=== PATIENT | female | born 1995 | race Caucasian/White ===

== ENCOUNTER → 2021-10-13 | Outpatient (CLI) | payer OTHER, SELFPAY ==
[2021-10-20 14:22] LABS: HPV Reflexed? NOT INDICATED
== END | disposition home or self-care (01) ==
LOC: LABSPEC 17:31
PROVIDERS: PCP Family Medicine; Visit Provider Nurse Practitioner Women's Health
DX: Z12.4 Encounter for screening for malignant neoplasm of cervix (principal)
CPT/HCPCS: 88175; G0145

== ENCOUNTER → 2022-06-30 | Outpatient (CLI) | payer OTHER, SELFPAY ==
[2022-06-30 15:34] LABS: Absolute Lymphocyte Count 1.95 X10^3/uL (0.83-4.51); Absolute Neutrophil Count 6.3 X10^3/uL (2.0-7.7); Basophil# 0.04 X10^3/uL; Basophil% 0.5 % (0-1); Eosinophil# 0.08 X10^3/uL; Eosinophils% 0.9 % (0-5); Hematocrit 38.5 % (37-47); Hemoglobin 13.2 g/dL (12.0-15.0); Lymphocyte # 1.95 X10^3/ul (0.83-4.51); Lymphocyte % 22.1 % (19-41); Mean Corp Hgb Conc 34.3 g/dL (32-36); Mean Corpuscular Volume 93.2 fL (81-99); Monocyte# 0.44 X10^3/uL; NRBC Flagged by Analyzer 0 % (0-5); Neutrophil # 6.29 X10^3/uL (2.7-7.7); Neutrophil % 71.2 % (47-70); Platelet Count 311 K/mm3 (150-450); RBC Distribution Width CV 11.6 % (11.6-14.6); RBC Distribution Width SD 39.2 fl (35.1-43.9); Red Blood Count 4.13 M/mm3 (4.2-5.4); White Blood Count 8.8 K/mm3 (4.4-11.0)
[2022-06-30 16:20] LABS: NATERA MAILED SPECIMEN
[2022-06-30 16:55] LABS: HIV - WCH Non-Reactive (Nonreactive); Hepatitis B Surface Antigen Non-Reactive (Nonreactive); Hepatitis C Antibody Non-Reactive (Nonreactive); Rubella IgG Reactive (Nonreactive); Syphilis Antibodies Non-reactive
[2022-07-02 21:07] LABS: Chlamydia By Nucleic Acid AMP Negative (Negative)
[2022-07-04 14:13] LABS: Gonococcus By Nucleic Acid AMP Negative (Negative)
== END | disposition home or self-care (01) ==
PROVIDERS: PCP Family Medicine; Referring Provider Obstetrics & Gynecology; Visit Provider Obstetrics & Gynecology
DX: Z34.90 Encounter for supervision of normal pregnancy, unspecified, unspecified trimester (principal); Z31.430 Encounter of female for testing for genetic disease carrier status for procreative management
CPT/HCPCS: 36415; 85025; 86703; 86762; 86780; 86803; 86850; 86900; 86901; 87086; 87340; 87491; 87591

== ENCOUNTER 2022-10-14 14:00 | Outpatient (CLI) | payer OTHER, SELFPAY ==
[2022-10-14] VITALS (13 sets, daily range): BP systolic 111–117; BP diastolic 63–69; PULSE 93–108; O2SAT 100
[2022-10-14] MEDS: Magnesium Sulfate 4gm/100mL 4 GM/100 ML IV.SOLN. IV (14:19)
[2022-10-14] MEDS: Betamethasone/Betamethasone 30 MG/5 ML Vial 12 MG IM (14:36)
[2022-10-14] MEDS: Magnesium Sulfate 4gm/100mL 2 GM/50 ML IV.SOLN. IV (14:37)
[2022-10-14] MEDS: Indomethacin 25 MG Capsule 50 MG PO (14:38)
[2022-10-14] MEDS: Lactated Ringers 1,000 ML 15 ML IV (14:41)
[2022-10-14 14:47] LABS: Absolute Lymphocyte Count 1.97 X10^3/uL (0.83-4.51); Absolute Neutrophil Count 9.9 X10^3/uL (2.0-7.7); Basophil# 0.05 X10^3/uL; Basophil% 0.4 % (0-1); Eosinophil# 0.07 X10^3/uL; Eosinophils% 0.6 % (0-5); Hematocrit 35.6 % (37-47); Hemoglobin 12.1 g/dL (12.0-15.0); Lymphocyte # 1.97 X10^3/ul (0.83-4.51); Lymphocyte % 15.7 % (19-41); Mean Corpuscular Hgb 33.9 pg (27.0-32.0); Mean Corpuscular Volume 99.7 fL (81-99); Mean Platelet Vol. 9.8 fl (6.2-12.0); Monocyte# 0.51 X10^3/uL; Monocyte% 4.1 % (0-10); NRBC Flagged by Analyzer 0 % (0-5); Neutrophil # 9.86 X10^3/uL (2.7-7.7); Neutrophil % 78.6 % (47-70); Platelet Count 360 K/mm3 (150-450); RBC Distribution Width CV 12.9 % (11.6-14.6); RBC Distribution Width SD 46.8 fl (35.1-43.9); Red Blood Count 3.57 M/mm3 (4.2-5.4); White Blood Count 12.5 K/mm3 (4.4-11.0)
[2022-10-14] MEDS: Magnesium Sulfate 20 GM/500 ML BAG IV (14:52)
--- NOTE | 2022-10-14 15:18 | OB.TRI.HP_ITS ---
HPI - General HPI Narrative SANDRA VEGA, is a 27 y/o @ 23 weeks 1 days who presents to my office today with mucous discharge and pressure. On exam in the office sterile spec she was found to have cervix surrounding bulging membranes (about 4 cm dilated). The fetus is in the breech presentation on ultrasound. She was sent to L&D stat. She denies loss of fluid, vaginal bleeding, or decreased movement. Her has been overall uncomplicated. Dr. Dill was consulted and accepted transfer to [facility]. Maternal Data Information CHANI Calculator Estimated Delivery Date Method Current WG Current Estimate 02/09/23 LMP (Certain) 23w 1d Other Estimates 02/11/23 Ultrasound #1 22w 6d PFSH PFSH Medical History Irregular menses Home Medications vitamins no.163-iron bis-gly 20 mg-folate no.10 1 mg tablet (PNV Tabs 20-1) 1 tab PO DAILY 06/16/22 [History Last Taken 1 Day Ago ~10/13/22] Allergy/AdvReac Type Severity Reaction Status Date / Time aspirin Allergy Intermediate Hives Verified 10/14/22 12:58 diphenhydramine Allergy Intermediate Hives Verified 10/14/22 12:58 [From Benadryl] ibuprofen Allergy Intermediate Hives Verified 10/14/22 12:58 lactose AdvReac Mild Upset Verified 10/14/22 12:58 Stomach Surgical History H/O oral surgery Hx of wisdom tooth extraction Social History adopted: No household members: spouse current occupational status: employed current occupation: [employer] current occupational exposures/hazards: No pets and animals: No history of recent travel: No sexually active: Yes Smoking Status: Never smoker alcohol intake: never substance use type: does not use diet: gluten free and lactose free well-balanced diet: daily or most days caffeine: No eating out: 1-3 times/week during the past year weight has: remained stable what type of physical activity do you participate in: running and weight training frequency: 3-4 times per week duration: 15-30 minutes/day rehan/anabaptist: Yarsani seatbelt use: always do you feel safe at home: Yes 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 History 1 Elective abortions Hx Para 0 Spontaneous abortions Hx # Term Pregnancies Ectopic pregnancies Hx # Pregnancies Multiple births # of living children Visit Details Expected Delivery Route/Plan Labor Preferences- CB/BF classes: [] labor support person: [] labor intervention preferences: [] pain management options preferred: [] cut cord/dad catch: [] : [] PP control planned: [] discussed possible routes of delivery and associated risks: [] special requests: [] Plans Covid status: unvaccinated Flu vaccine: dismissed Tdap vaccine: [] Rhogam: [] LARC form signed: [] Problem list reviewed and updated with the most current plan of care details and appropriate orders placed. Relevant counseling for the gestational age provided. Continue routine care and follow up unless otherwise noted in visit notes/problem list details OB Flowsheet Initial Weight: Not Recorded Date -?-?-?-?-?-?-?-?-?-?-?-?- EGA Weight BP Urine Prot -?-?-?-?-?-?-?-?-?-?-?-?- Glucose FHR FuHt Pres Dilation -?-?-?-?-?-?-?-?-?-?-?-?- Effaced St Visit Note 06/30/22 -?-?-?-?-?-?-?-?-?-?-?-?- 8w 0d 117 lb 2 oz 118/89 -?-?-?-?-?-?-?-?-?-?-?-?- 160 -?-?-?-?-?-?-?-?-?-?-?-?- JV- single live IUP measuring 7 weeks 5 days and consistent with LMP. 07/28/22 -?-?-?-?-?-?-?-?-?-?-?-?- 12w 0d 117 lb 2 oz 121/82 Nega tive -?-?-?-?-?-?-?-?-?-?-?-?- Negative 170 -?-?-?-?-?-?-?-?-?-?-?-?- SM- no vb crampi ng struggling with acne. 08/25/22 -?-?-?-?-?-?-?-?-?-?-?-?- 16w 0d 120 lb 8 oz 101/69 Nega tive -?-?-?-?-?-?-?-?-?-?-?-?- Negative 160 -?-?-?-?-?-?-?-?-?-?-?-?- Sm- no vb crampi ng declined afp 09/21/22 -?-?-?-?-?-?-?-?-?-?-?-?- 19w 6d 123 lb 8 oz 122/85 Nega tive -?-?-?-?-?-?-?-?-?-?-?-?- Negative 150 -?-?-?-?-?-?-?-?-?-?-?-?- SM- no vb lof go od fm no regular ctx 10/14/22 -?-?-?-?-?-?-?-?-?-?-?-?- 23w 1d 126 lb 8 oz 119/78 Trac e -?-?-?-?-?-?-?-?-?-?-?-?- Negative 156 -?-?-?-?-?-?-?-?-?-?-?-?- LC- pt seen for increased discharge since this morning with pelvic pressure. speculum placed and noted amniotic sac bulging in vagina. Dr. Hernandez notified and [facility] called. will be transporting to for IV placement, steroids, tocolytics. will be transporting to [facility]. ROS Constitutional Constitutional: Reports systems reviewed and no addt'l complaints, except as doc umented Gastrointestinal Gastrointestinal: Denies bloating, constipation, cramping, diarrhea, nausea or vomiting Genitourinary Genitourinary: Reports other Details: Denies vaginal odor, vaginal bleeding, or vaginal discharge ; Denies difficulty urinating or flank pain Physical Exam HEENT normocephalic Resp normal respiratory effort and normal air movement no CVA tenderness Extremity normal to inspection General Extremity: edema bilateral (trace ) NST FHR Rate Baby A Baseline: 140 Variability:: Moderate Accelerations:: 10 x 10 Decelerations:: None NST Reactive:: Yes FHR Category:: Category I Assessment & Plan (1) Threatened labor: (2) Rh negative status during : COMMENT: rhogam at 28 weeks and PRN bleeding (3) Supervision of high risk , antepartum: COMMENT: PRR , CHANI 02/09/23, surprise Ramirez (4) : QUALIFIERS: Weeks of gestation: 23 weeks Qualified Code(s): Z3A.23 - 23 weeks gestation of COMMENT: anatomy nl, declined genetic, carrier testing neg. PLAN: Plan start IV fluids, 2 grams ancef, INdocin, Magnesium sulfate, celestone now transport is on her way now. there are now some contractions on the monitor, however patient wants to urinate. Charges/Coding Multi Select Codes Visit Charges Office Visit/Consults: 41701 OV L4 Est Urinary/Genital Urinary/Genital CPT Codes: 29785-42 non-stress test Interp
== END 2022-10-14 15:02 | disposition home or self-care (01) ==
LOC: WPOUT 14:13 → WP 14:14
PROVIDERS: PCP Family Medicine; Referring Provider Obstetrics & Gynecology; Visit Provider Obstetrics & Gynecology
DX: O47.02 False labor before 37 completed weeks of gestation, second trimester (principal); O26.892 Other specified pregnancy related conditions, second trimester; Z3A.23 23 weeks gestation of pregnancy
CPT/HCPCS: 96365; 96372; 36415; 59050; 85025; 86850; 86900; 86901; 99221; J7120; G0378; J0702

== ENCOUNTER → 2023-03-23 | Outpatient (CLI) | payer OTHER, SELFPAY | END | disposition home or self-care (01) | LOC: LABSPEC 16:59 | PROVIDERS: PCP Family Medicine; Referring Provider Registered Nurse; Visit Provider Registered Nurse | DX: N90.89 Other specified noninflammatory disorders of vulva and perineum (principal) | CPT/HCPCS: 87070; 87205 ==

== ENCOUNTER → 2023-09-24 | Outpatient (CLI) | payer OTHER, SELFPAY ==
[2023-09-28 00:07] LABS: Chlamydia By Nucleic Acid AMP Negative (Negative); Gonococcus By Nucleic Acid AMP Negative (Negative)
== END | disposition home or self-care (01) ==
LOC: LABSPEC 16:27
PROVIDERS: PCP Family Medicine; Referring Provider Registered Nurse; Visit Provider Registered Nurse
DX: Z34.90 Encounter for supervision of normal pregnancy, unspecified, unspecified trimester (principal)
CPT/HCPCS: 87086; 87491; 87591

== ENCOUNTER → 2023-09-29 | Outpatient (CLI) | payer OTHER, SELFPAY ==
[2023-09-29 14:26] LABS: Absolute Lymphocyte Count 2.62 X10^3/uL (0.83-4.51); Absolute Neutrophil Count 7.3 X10^3/uL (2.0-7.7); Basophil# 0.06 X10^3/uL; Basophil% 0.6 % (0-1); Eosinophil# 0.17 X10^3/uL; Eosinophils% 1.6 % (0-5); Hematocrit 38.3 % (37-47); Hemoglobin 13.1 g/dL (12.0-15.0); Lymphocyte # 2.62 X10^3/ul (0.83-4.51); Lymphocyte % 24.4 % (19-41); Mean Corp Hgb Conc 34.2 g/dL (32-36); Mean Corpuscular Hgb 31.6 pg (27.0-32.0); Mean Corpuscular Volume 92.3 fL (81-99); Mean Platelet Vol. 9.9 fl (6.2-12.0); Monocyte% 5.6 % (0-10); NRBC Flagged by Analyzer 0 % (0-5); Neutrophil # 7.25 X10^3/uL (2.7-7.7); Neutrophil % 67.5 % (47-70); Platelet Count 349 K/mm3 (150-450); RBC Distribution Width CV 11.7 % (11.6-14.6); RBC Distribution Width SD 39.4 fl (35.1-43.9); Red Blood Count 4.15 M/mm3 (4.2-5.4); White Blood Count 10.7 K/mm3 (4.4-11.0)
[2023-09-29 15:18] LABS: HIV - WCH Non-Reactive (Nonreactive); Hepatitis B Surface Antigen Non-Reactive (Nonreactive); Hepatitis C Antibody Non-Reactive (Nonreactive); Rubella IgG Reactive (Nonreactive); Syphilis Antibodies Non-reactive
== END | disposition home or self-care (01) ==
LOC: PAVLAB 14:02
PROVIDERS: PCP Family Medicine; Referring Provider Registered Nurse; Visit Provider Registered Nurse
DX: Z34.90 Encounter for supervision of normal pregnancy, unspecified, unspecified trimester (principal)
CPT/HCPCS: 36415; 85025; 86703; 86762; 86780; 86803; 86850; 86900; 86901; 87340

== ENCOUNTER → 2024-02-11 | Outpatient (CLI) | payer OTHER, SELFPAY ==
[2024-02-11 09:52] LABS: Absolute Lymphocyte Count 1.39 X10^3/uL (0.83-4.51); Absolute Neutrophil Count 7.3 X10^3/uL (2.0-7.7); Basophil# 0.05 X10^3/uL; Basophil% 0.5 % (0-1); Eosinophil# 0.11 X10^3/uL; Eosinophils% 1.2 % (0-5); Hematocrit 33.7 % (37-47); Hemoglobin 11.3 g/dL (12.0-15.0); Lymphocyte # 1.39 X10^3/ul (0.83-4.51); Mean Corp Hgb Conc 33.5 g/dL (32-36); Mean Corpuscular Hgb 33.7 pg (27.0-32.0); Mean Corpuscular Volume 100.6 fL (81-99); Mean Platelet Vol. 9.8 fl (6.2-12.0); Monocyte# 0.34 X10^3/uL; Monocyte% 3.7 % (0-10); NRBC Flagged by Analyzer 0 % (0-5); Neutrophil # 7.28 X10^3/uL (2.7-7.7); Neutrophil % 78.8 % (47-70); Platelet Count 300 K/mm3 (150-450); Red Blood Count 3.35 M/mm3 (4.2-5.4); White Blood Count 9.2 K/mm3 (4.4-11.0)
[2024-02-11 10:33] LABS: Glucose Challenge Gest 1H 50g 96 mg/dL (70-140)
[2024-02-11 10:46] LABS: HIV - WCH Non-Reactive (Nonreactive); Syphilis Antibodies Non-reactive
== END | disposition home or self-care (01) ==
LOC: LAB 09:21
PROVIDERS: PCP Family Medicine; Referring Provider Obstetrics & Gynecology; Visit Provider Obstetrics & Gynecology
DX: O09.92 Supervision of high risk pregnancy, unspecified, second trimester (principal); Z13.1 Encounter for screening for diabetes mellitus; Z3A.00 Weeks of gestation of pregnancy not specified
CPT/HCPCS: 36415; 82950; 85025; 86703; 86780; 86850; 86900; 86901

== ENCOUNTER → 2024-04-07 | Outpatient (CLI) | payer OTHER, SELFPAY | END | disposition home or self-care (01) | PROVIDERS: PCP Family Medicine; Referring Provider Obstetrics & Gynecology; Visit Provider Obstetrics & Gynecology | DX: O09.92 Supervision of high risk pregnancy, unspecified, second trimester (principal); Z3A.00 Weeks of gestation of pregnancy not specified | CPT/HCPCS: 87081 ==

== ENCOUNTER 2024-04-27 02:00 | Inpatient (IN) | payer OTHER, SELFPAY ==
[2024-04-27] VITALS (58 sets, daily range): BP systolic 100–123; BP diastolic 61–81; PULSE 45–131; RESP 16–18; TEMP 36.4–37.6; O2SAT 56–100; BMI 27.1
[2024-04-27] MEDS: 0.9% Saline Lock 10 ML Syringe IV ×2 (02:25→02:40)
--- NOTE | 2024-04-27 02:27 | HP.PCM.OB_ITS ---
HPI - General General Date of Admission: 04/27/24 HPI Narrative SANDRA VEGA, is a 29 F who presents IAL with regualr ctx no vb admits LOF and ROM 900 pm Maternal Data Information CHANI Calculator Estimated Delivery Date Method Current WG Current Estimate 05/04/24 LMP (Certain) 39w 0d PFSH PFSH Medical History Ectropion, cervix Irritation of vulva Vaginal discharge Diastasis of rectus abdominis Pre-conception counseling Vaginal discharge Rh negative status during Irregular menses Home Medications ?Medication ?Instructions ?Recorded ?Last Taken ?Type vitamin#30 30 mg iron-10 1 cap PO DAILY 01/07/24 Unknown History mg iron-folic acid 1 mg-omg3 capsule Allergy/AdvReac Type Severity Reaction Status Date / Time aspirin Allergy Intermediate Hives Verified 04/27/24 01:45 diphenhydramine (From Allergy Intermediate Hives Verified 04/27/24 01:45 Benadryl) ibuprofen Allergy Intermediate Hives Verified 04/27/24 01:45 Penicillins Allergy Mild Rash Verified 04/27/24 01:45 lactose AdvReac Mild Upset Verified 04/27/24 01:45 Stomach Family History no significant family his Surgical History Hx of wisdom tooth extraction Social History adopted: No household members: spouse current occupational status: employed current occupation: [employer] current occupational exposures/hazards: No pets and animals: No history of recent travel: No sexually active: Yes Smoking Status: Never smoker alcohol intake: never substance use type: does not use diet: gluten free and lactose free well-balanced diet: daily or most days caffeine: No eating out: rarely or never during the past year weight has: remained stable what type of physical activity do you participate in: walking and weight training frequency: 3-4 times per week duration: 15-30 minutes/day rehan/orthodoxy: Hoahaoism seatbelt use: always do you feel safe at home: Yes 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 Date Name GA/Weeks Outcome Route Bth Weight Gen Labor Lgth Anesthesia [facility] Provider FOB 10/16/22 Dionicio Quintanan 23 live - Male Delivery Date: 10/16/22 Last Updated by: Kacey Little No interventions, soon after Visit Details Expected Delivery Route/Plan Labor Preferences- CB/BF classes: desires. labor support person: Ramirez labor intervention preferences: low intervention, would like intermittent auscultation if able. pain management options preferred: unmedicated, do not ask if desires epidural in labor. does not want. cut cord/dad catch: yes to cord, possibly catch : yes PP control planned: NFP discussed possible routes of delivery and associated risks: [] special requests: Janice at delivery Plans Covid status: [] Flu vaccine: declines Tdap vaccine: declines Rhogam: obtained 02/11/2024 LARC form signed: completed Problem list reviewed and updated with the most current plan of care details and appropriate orders placed. Relevant counseling for the gestational age provided. Continue routine care and follow up unless otherwise noted in visit notes/problem list details OB Flowsheet Initial Weight: 118 lb 12.8 oz Date -?-?-?-?-?-?-?-?-?-?-?-?- EGA Weight BP Urine Prot -?-?-?-?-?-?-?-?-?-?-?-?- Glucose FHR FuHt Pres Dilation -?-?-?-?-?-?-?-?-?-?-?-?- Effaced St Visit Note 09/24/23 -?-?-?-?-?-?-?-?-?-?-?-?- 8w 1d 161 lb 9 oz (+42 lb 12.2 oz) 118 lb 12.8 oz (+0 oz) 120/75 -?-?-?-?-?-?-?-?-?-?-?-?- 163 -?-?-?-?-?-?-?-?-?-?-?-?- LC- CRL con with LMP. LC- CRL con with LMP. cathleen mckinley nipt. plan CL starting at 16 weeks for hx of 23 week loss. 10/22/23 -?-?-?-?-?-?-?-?-?-?-?-?- 12w 1d 119 lb 4 oz (+7.2 oz) 125/78 Negative -?-?-?-?-?-?-?-?-?-?-?-?- Negative 165 -?-?-?-?-?-?-?-?-?-?-?-?- JV- pt has decid ed to decline the 16 week cl and plan to start CL checks at 18 weeks q weeks. She does not want a cerclage if one is needed anyway. declines progesterone suppositories. 10/29/23 -?-?-?-?-?-?-?-?-?-?-?-?- 13w 1d 119 lb 6 oz (+9.2 oz) 124/70 Negative -?-?-?-?-?-?-?-?-?-?-?-?- Negative 160 -?-?-?-?-?-?-?-?-?-?-?-?- LC- had spotting this AM and desired FHR check. had increased activity levels yesterday. denies any further bleeding today. LC- had very light spotting x1 this AM and desired FHR check. had increased activity levels yesterday. denies any further bleeding since. 11/19/23 -?-?-?-?-?-?-?-?-?-?-?-?- 16w 1d 121 lb (+2 lb 3.2 oz) 122/81 Negative -?-?-?-?-?-?-?-?-?-?-?-?- Negative 147 -?-?-?-?-?-?-?-?-?-?-?-?- LC- no vb/crampi ng. declines afp. has CL scans scheduled. 12/03/23 -?-?-?-?-?-?-?-?-?-?-?-?- 18w 1d 123 lb (+4 lb 3.2 oz) 107/69 Negative -?-?-?-?-?-?-?-?-?-?-?-?- Negative 138 -?-?-?-?-?-?-?-?-?-?-?-?- LC- no vb/crampi ng. has anatomy on 12/06. no concerns. 12/17/23 -?-?-?-?-?-?-?-?-?-?-?-?- 20w 1d 125 lb (+6 lb 3.2 oz) 115/75 Negative -?-?-?-?-?-?-?-?-?-?-?-?- Negative 154 20 -?-?-?-?-?-?-?-?-?-?-?-?- LC- no vb/crampi ng. anatomy with 4.1 LC- no vb/cramping. anatomy with 4.1 CL. has another scan planned on wednesday. normal anatomy reviewed. recommended MFM consultation for previous PTL and , accepts today. consulted with [facility], agrees with management. 01/07/24 -?-?-?-?-?-?-?-?-?-?-?-?- 23w 1d 126 lb (+7 lb 3.2 oz) 96/52 Negative -?-?-?-?-?-?-?-?-?-?-?-?- Negative 135 23 -?-?-?-?-?-?-?-?-?-?-?-?- LC- stable cervi jose raul lengths. consulted with PREETHI. to obtain x1 more cervical length next week. denies any concerns today. no vb/ctx/lof + movement. 01/13/24 -?-?-?-?-?-?-?-?-?-?-?-?- 24w 0d 125 lb 2 oz (+6 lb 5.2 oz) 119/73 Negative -?-?-?-?-?-?-?-?-?-?-?-?- Negative 142 24 -?-?-?-?-?-?-?-?-?-?-?-?- HopeV- last cl (wed this week) was 4.1! patient very comfortable and happy. will be doing fresh test for glucola. 01/28/24 -?-?-?-?-?-?-?-?-?-?-?-?- 26w 1d 126 lb (+7 lb 3.2 oz) 103/68 Negative -?-?-?-?-?-?-?-?-?-?-?-?- Negative 147 26 -?-?-?-?-?-?-?-?-?-?-?-?- LC- no vb/ctx/lo f. good fm. no concerns, appropriate fears over 02/02/24 -?-?-?-?-?-?-?-?-?-?-?-?- 26w 6d 125 lb 4 oz (+6 lb 7.2 oz) 108/72 Negative -?-?-?-?-?-?-?-?-?-?-?-?- Negative 161 27 -?-?-?-?-?-?-?-?-?-?-?-?- JV- no complaint s today. good movement. planning 28 weeks labs next wednesday. pt is getting counseling and appears happy and well today. 02/11/24 -?-?-?-?-?-?-?-?-?-?-?-?- 28w 1d 129 lb 4 oz (+10 lb 7.2 oz) 111/73 Negative -?-?-?-?-?-?-?-?-?-?-?-?- Negative 153 28 -?-?-?-?-?-?-?-?-?-?-?-?- LC- no vb/ctx/lo f. good fm. passed glucola. doing well. 02/17/24 -?-?-?-?-?-?-?-?-?-?-?-?- 29w 0d 127 lb 6 oz (+8 lb 9.2 oz) 122/75 Negative -?-?-?-?-?-?-?-?-?-?-?-?- Negative 140 29 -?-?-?-?-?-?-?-?-?-?-?-?- JV- JV- no lof, vaginal bleeding , or dec fm normal 28 week labs. plan for 36 week growth scan. 02/25/24 -?-?-?-?-?-?-?-?-?-?-?-?- 30w 1d 129 lb 6 oz (+10 lb 9.2 oz) 110/72 Negative -?-?-?-?-?-?-?-?-?-?-?-?- Negative 142 30 -?-?-?-?-?-?-?-?-?-?-?-?- Lc- no vb/ctx/lo f. good fm. no concerns today. larc completed. 03/02/24 -?-?-?-?-?-?-?-?-?-?-?-?- 31w 0d 131 lb 2 oz (+12 lb 5.2 oz) 110/69 Negative -?-?-?-?-?-?-?-?-?-?-?-?- Negative 130 31 -?-?-?-?-?-?-?-?-?-?-?-?- JV- no lof, vagi nal bleeding, or dec fm. has had some intermittent sticky discharge. no other complaints. 03/10/24 -?-?-?-?-?-?--?-?-?-?-?-?- 32w 1d 134 lb (+15 lb 3.2 oz) 105/70 Negative -?-?-?-?-?-?-?-?-?-?-?-?- Negative 143 32 -?-?-?-?-?-?-?-?-?-?-?-?- LC- no vb/ctx/lo f. good fm. preferences reviewed. no concerns today. 03/24/24 -?-?-?-?-?-?-?-?-?-?-?-?- 34w 1d 136 lb 6 oz (+17 lb 9.2 oz) 106/72 Negative -?-?-?-?-?-?-?-?-?-?-?-?- Negative 135 34 Cephalic -?-?-?-?-?-?-?-?-?-?-?-?- SM- no vb lof go od fm no regualr ctx 04/07/24 -?-?-?-?-?-?-?-?-?-?-?-?- 36w 1d 136 lb 8 oz (+17 lb 11.2 oz) 115/80 Negative -?-?-?-?-?-?-?-?-?-?-?-?- Negative 140 36 Cephalic -?-?-?-?-?-?-?-?-?-?-?-?- JV- no lof, vagi nal bleeding, or dec fm. thinks has pcn allergy. gbs collected. when patient is at a slight incline fh is normal. 04/14/24 -?-?-?-?-?-?-?-?-?-?-?-?- 37w 1d 138 lb 8 oz (+19 lb 11.2 oz) 126/80 Negative -?-?-?-?-?-?-?-?-?-?-?-?- Negative 143 37 Cephalic -?-?-?-?-?-?-?-?-?-?-?-?- JV- no lof, vagi nal bleeding, or dec fm. GBS was negative. 04/21/24 -?-?-?-?-?-?-?-?-?-?-?-?- 38w 1d 138 lb 6 oz (+19 lb 9.2 oz) 106/69 Negative -?-?-?-?-?-?-?-?-?-?-?-?- Negative 135 38 Cephalic -?-?-?-?-?-?-?-?-?-?-?-?- LC- no vb/ctx/lo f. good fm. no concerns today. NST FHR Rate Baby A Baseline: 140 Variability:: Moderate Accelerations:: 15 x 15 Decelerations:: None NST Reactive:: Yes FHR Category:: Category I Uterine Activity:: q2 ROS Constitutional Constitutional: Reports systems reviewed and no addt'l complaints, except as documented ENT HEENT: Reports systems reviewed and no addt'l complaints, except as documented Cardiovascular Cardiovascular: Reports systems reviewed and no addt'l complaints, except as documented Respiratory/Chest Respiratory/Chest: Reports systems reviewed and no addt'l complaints, except as documented Gastrointestinal Gastrointestinal: Reports systems reviewed and no addt'l complaints, except as documented and nausea; Denies abdominal pain Genitourinary Genitourinary: Reports systems reviewed and no addt'l complaints, except as documented, contractions Details: present and frequency (regular ) and movement Details: present Musculoskeletal Musculoskeletal: Reports systems reviewed and no addt'l complaints, except as documented Integumentary Integumentary: Reports as per HPI Neurologic Neurologic: Reports systems reviewed and no addt'l complaints, except as documented Endocrine Endocrinology: Reports systems reviewed and no addt'l complaints, except as documented Vital Signs Vital Signs Vital Signs: 04/27/24 01:35 04/27/24 01:35 04/27/24 01:36 Pulse Rate 88 Blood Pressure 120/75 BP Systolic 120 BP Diastolic 75 Pulse Ox 97 04/27/24 01:36 Pulse Rate 81 Blood Pressure BP Systolic BP Diastolic Pulse Ox Weight Weight: 139 lb 3.2 oz Body Mass Index (BMI) 27.1 Physical Exam Const alert, oriented x3 and healthy appearing Constitutional Narrative: uncomfortable with contractions HEENT normocephalic and moist oral mucous membranes Head and Scalp: atraumatic Neck full ROM, no lymphadenopathy, supple and thyroid normal General: trachea midline Thyroid: thyroid normal Lymph Lymphatic: no lymphadenopathy noted Chest inspection of chest normal Resp normal respiratory effort Cardio regular rate GI soft to palpation and non-tender Inspection: gravid external exam normal Bimanual Exam - Vag & Uterus: uterus non-tender Manual OB Exam: estimated gestational size appropriate, presentation cephalic, dilated, effaced and station Extremity normal to inspection General Extremity: Negative for edema Skin no rashes or lesions noted Neuro deep tendon reflexes 2+ bilaterally Motor Exam: strength 5/5 throughout and clonus absent Psych mental status grossly normal Labs Labs Labs: Blood Type A NEGATIVE Antibody Screen NEGATIVE Hct 34.3 % (37-47) L Hgb 11.8 g/dL (12.0-15.0) L Syphilis Total Ab Non-reactive Rubella IgG Antibody Reactive (Nonreactive) Hep Bs Antigen Non-Reactive (Nonreactive) Hepatitis C Antibody Non-Reactive (Nonreactive) Chlamydia DNA (SIL) Negative (Negative) N.gonorrhoeae DNA (SIL) Negative (Negative) HIV 1&2 Antibody Non-Reactive (Nonreactive) Glucose 1 Hr 50 gm 96 mg/dL (70-140) Assessment & Plan (1) Active labor at term: (2) Loss of infant: COMMENT: reviewed labor and delivery with Dionicio's G1 - loss at 23 weeks emotional support provided, [facility] pre-conception counseling declined. (3) depression: COMMENT: improved depression. continues counseling. stable (4) : QUALIFIERS: Weeks of gestation: 38 weeks Qualified Code(s): Z3A.38 - 38 weeks gestation of COMMENT: neg GBS. Discussed genetic and carrier testings - carrier testing done last . declines genetic screening (5) Supervision of high-risk : QUALIFIERS: Trimester: second trimester Qualified Code(s): O09.92 - Supervision of high risk , unspecified, second trimester COMMENT: PRR , CHANI 05/04/24, PC: Dionicio (passed soon after ), : Ramirez [facility] formal consultation 12/16 accepted. growth scan at 36 weeks. (6) Rh negative status during : COMMENT: rhogam at 28 weeks and PRN bleeding, Given 02/11/24 (7) History of delivery: COMMENT: 23 weeks with loss of son after . 4 cm CL with current . PLAN: Plan admit IAL
[2024-04-27 02:32] LABS: Absolute Lymphocyte Count 2.49 X10^3/uL (0.83-4.51); Basophil# 0.08 X10^3/uL; Basophil% 0.6 % (0-1); Eosinophil# 0.13 X10^3/uL; Hematocrit 34.3 % (37-47); Hemoglobin 11.8 g/dL (12.0-15.0); Lymphocyte # 2.49 X10^3/ul (0.83-4.51); Lymphocyte % 18.4 % (19-41); Mean Corp Hgb Conc 34.4 g/dL (32-36); Mean Corpuscular Volume 98.8 fL (81-99); Mean Platelet Vol. 10.5 fl (6.2-12.0); Monocyte# 0.67 X10^3/uL; Monocyte% 4.9 % (0-10); NRBC Flagged by Analyzer 0 % (0-5); Neutrophil # 10.02 X10^3/uL (2.7-7.7); Platelet Count 258 K/mm3 (150-450); RBC Distribution Width CV 12.4 % (11.6-14.6); RBC Distribution Width SD 44.7 fl (35.1-43.9); Red Blood Count 3.47 M/mm3 (4.2-5.4); White Blood Count 13.5 K/mm3 (4.4-11.0)
[2024-04-27 02:43] LABS: ROM Internal Control Test YES-OK TO RESULT pt. (Internal QC)
[2024-04-27 02:44] LABS: ROM Patient Test POSITIVE (Negative); Record Kit Lot#, ROM+ K1972
[2024-04-27] MEDS: Lidocaine 1% (20 ml mdv) 20 ML Vial INFILT (04:15)
--- NOTE | 2024-04-27 04:35 | OB.VAGDELI_ITS ---
Assessment & Plan (1) Loss of : COMMENT: reviewed labor and delivery with Dionicio's G1 - loss at 23 weeks emotional support provided, [facility] pre-conception counseling declined. (2) depression: COMMENT: improved depression. continues counseling. stable (3) : QUALIFIERS: Weeks of gestation: 38 weeks Qualified Code(s): Z3A.38 - 38 weeks gestation of COMMENT: neg GBS. Discussed genetic and carrier testings - carrier testing done last . declines genetic screening (4) Supervision of high-risk : QUALIFIERS: Trimester: second trimester Qualified Code(s): O09.92 - Supervision of high risk , unspecified, second trimester COMMENT: PRR , CHANI 05/04/24, PC: Dionicio (passed soon after ), : Ramirez [facility] formal consultation 12/16 accepted. growth scan at 36 weeks. (5) Rh negative status during : COMMENT: rhogam at 28 weeks and PRN bleeding, Given 02/11/24 (6) History of delivery: COMMENT: 23 weeks with loss of son after . 4 cm CL with current . (7) Active labor at term: Maternal Data Information CHANI Calculator Estimated Delivery Date Method Current WG Current Estimate 05/04/24 LMP (Certain) 39w 0d Vaginal Delivery Maternal Presentation Maternal Presentation: see assessment and plan Vaginal Delivery Information Procedure Performed: Spontaneous Vaginal Delivery Surgeon/Practitioner: Marylin Barrett Pre-Procedure Diagnosis: see assessment and plan Post-Procedure Diagnosis: same Type of anesthesia: Epidural Findings Description of procedure: Patient began pushing and delivered the head in the CHINO presentation. The head was delivered atraumatically . The anterior and posterior shoulders delivered without complication followed by the rest of the and the was ervin lukasz on the maternal abdomen. Delayed cord clamping was employed for approximately 60 seconds. Cord was clamped and cut and gentle traction was applied to the cord and the placenta delivered spontaneously immediately following it was noted to be intact with three-vessel cord. The perineum and vagina were inspected and was noted to have a second -degree laceration that was repaired in the usual fashion with 3-0 vicryl rapide . EBL was 300. Patient and infant tolerated delivery well. Presentation: Vertex Placental Delivery Description: Spontaneous Specimen collected: Yes Description of specimen(s) removed: placenta Director Patient inventory and pricing associate: No Post Vaginal Deli Medications given after delivery: Other (pitocin) Complication Complications: No Multi Select Codes Urinary/Genital Urinary/Genital CPT Codes: 93653 Vaginal Delivery [facility]
--- NOTE | 2024-04-27 04:37 | DCINST_ITS ---
Discharge Instructions Diet Discharge Diet: No restrictions Activity Discharge Activity: Return to Normal Activity, May Not Drive (while taking narcotic pain medications.) and May Shower May resume sexual activity in: 4-6 weeks Dressing / Incision Call your doctor if your incision/area has: Continuous Slow Oozing, Sudden Increased Bleeding, Increased Pain/ Swelling, Increased Redness and Foul Smelling Discharge Follow Up Care Please Follow Up With: Marylin Barrett MD When: Call [phone] to make an appointment with your doctor in 6 weeks. If you had elevated blood pressure or 4th degree laceration, you will need to be seen in 2 weeks. Test Results: Test results from this visit will be discussed in further detail at your follow- up appointment, if applicable. Discharge Plan Admission Admit Date/Time: 04/27/24 02:00 Attending Provider: Marylin Barrett Primary Care Provider: Peyton Hunt Discharge Orders/Prescriptions Prescriptions: No Action PNV #[id number] 30 mg iron-10 mg iron-1 mg capsule 1 cap PO DAILY Referrals / Follow Up: Peyton Hutn PA-C [Primary Care Provider] - Disposition Disposition (needs filled in before D/C Order can be placed): Home, Self Care
--- NOTE | 2024-04-27 12:05 | NURSING ---
pt has been extremely anxious this morning. She has many questions and doesn't appear to be reassured with answers given. She expresses much concern with , baby spitting up mucous, how to hold baby. Emotional support and lots of teaching given.
[2024-04-27] MEDS: Rho(D) Immune Globulin 300 MCG (1500 Unit) Syringe IV (13:15)
[2024-04-28] VITALS: BP 110/51; PULSE 94; RESP 16; TEMP 36.8; O2SAT 97
[2024-04-28 04:00] VITALS: BP 102/59; PULSE 90; RESP 16; TEMP 36.1; O2SAT 97
--- NOTE | 2024-04-28 07:59 | PCM.PN.OB ---
Subjective Subjective Patient doing well without complaints. Tolerating PO. Ambulating and voiding without difficulty. feeding well. Denies chest pain, shortness of breath, calf pain/swelling, fevers, chills, lightheadedness. Objective Data Objective Data Vital Signs: Vital Signs Temp Pulse Resp BP Pulse Ox O2 Del Method 97 F L 90 16 102/59 L 97 Room Air 04/28/24 04:00 04/28/24 04:00 04/28/24 04:00 04/28/24 04:00 04/28/24 04:00 04/28/24 04:00 Oxygen Delivery Method Room Air Weight: 139 lb 3.2 oz Body Mass Index (BMI) 27.1 Intake & Output: Intake and Output for Last 24 Hours 04/26/24 04/27/24 04/28/24 23:59 23:59 23:59 Output Total 300 / 300 Balance -300 / -300 Lab / Micro Data 04/27/24 02:25 Labs: Laboratory Results - last 24 hr 04/27/24 09:20: Screen NEGATIVE, Baby's Blood Type A POSITIVE, Baby's SUSANNA NEGATIVE ROS Constitutional Constitutional: Reports systems reviewed and no addt'l complaints, except as documented Cardiovascular Cardiovascular: Reports systems reviewed and no addt'l complaints, except as documented Respiratory/Chest Respiratory/Chest: Reports systems reviewed and no addt'l complaints, except as documented Gastrointestinal Gastrointestinal: Reports systems reviewed and no addt'l complaints, except as documented Physical Exam Const alert, oriented x3 and no apparent distress HEENT Head and Scalp: atraumatic Resp normal respiratory effort GI soft to palpation and non-tender Bimanual Exam - Vag & Uterus: uterus non-tender Uterus Palpation: uterus fundus firm (below Umbilicus) Assessment & Plan (1) Active labor at term: (2) History of delivery: COMMENT: 23 weeks with loss of son after . 4 cm CL with current . (3) Rh negative status during : COMMENT: rhogam at 28 weeks and PRN bleeding, Given 02/11/24 PLAN: Plan s/p PPD # 1 1. routine post delivery care 2. breast feeding- support given 3. rh positive 4. rubella immune
[2024-04-28 09:53] VITALS: BP 109/78; PULSE 82; RESP 16; TEMP 36.4; O2SAT 98
[2024-04-28 16:30] VITALS: BP 119/77; PULSE 97; RESP 16; TEMP 36.7; O2SAT 95
--- NOTE | 2024-05-01 11:04 | CASEMGMT ---
Social Work Assessment Labor and Delivery Unit Patient Address: [address] [place] [address] [place] [address] Phone number: [phone] Date of Referral: 04/27/24 Time of Referral:? 619 Referred By: Dr. Barrett Date of Intervention: ??04/28/24 Time of Intervention:? 1109 Reason for Referral:? history of depression Sw completed chart review and acknowledges social work consult due to maternal mental health history for post depression. Sw presented to bedside and introduced self to mother of baby (MOB- Ashlyn) and father of baby (FOB- Ramirez). Sw explained reason for sw involvement and completed psychosocial assessment. History obtained from: medical records, MOB and FOB ? Household composition: Currently residing in the home is MOB, FOB and baby when ready for discharge. Parents deny any issues or concerns with housing, stating that it is safe and secure. Patient's parent/guardian status:? ?Parents state that they have been together since high school, 15 years. Foster baby is second baby for the parents, after losing their first when born at 23 weeks gestation. No concerns or domestic violence or intimate partner violence reported. Medical History: ?ALLEN is 29 year old female who is 2, para 0- now 1 following labor and delivery. ALLEN received routine care during with [place]. ALLEN presented to hospital and delivered baby via vaginal delivery at 39 weeks gestation on 04/27/24. Baby boy, named Tristen Wheatley, was born weighing 7lb 5oz with apgars of 8 and 9 at one and five minutes of life, respectfully. ALLEN states that she is breast feeding and it has gone well. Baby will be followed by [facility] for pediatrics. Educational Status:? Both parents graduated from high school. FOB obtained his Master's degree. No issues with reading, learning or comprehension. Financial Status: FOB is employed working as an carbon accountant, and MOB works in finance. MOB states that she is able to work remotely. Supplies: Parents have obtained all necessary baby items, including: car seat, safe sleep space, clothes, diapers and wipes. Childcare/Caregiver(s):? ALLEN states that she will be the primary caregiver to baby along with FOB when he is not working. Transportation:?? Both parents have their drivers license and reliable means of transportation. No barriers. Programs/Agencies Involved: ???Parents deny linkage to community resources that assist them financially. Children Services/Legal Issues:??? No history of children services involvement, no issues or concerns warranting referral to be made at this time. Behavioral Health Issues: ??Mental Health History:??MARIANO denies mental health history. ALLEN states that she struggles with seasonal depression. ALLEN is connected to a life sciences teacher at [employer] in [place]. ALLEN states that she meets with her life sciences teacher one time a week and already has appointments scheduled starting next week. ALLEN states that when she had her first baby extremely prematurely at 23 weeks gestation, she struggled then with anxiety and grief. ALLEN states at that time she had also lost a grandparent and that was a really challenging time for her. ALLEN is not prescribed any medication to assist with her mental health. Nursing staff have reported concerns that ALLEN is extremely anxious at bedside. Sw discussed healthy coping skills with MOB. ? Substance Use History:?Parents deny substance use history prior to and during . ? Family History:??Parents deny family history of substance use/ addiction and significant mental health diagnoses. ??? Drug Screens: No drug screens observed in chart review. Family/Social Stressors:? MOB and FOB deny any issues, concerns or stressors at this time. Support Systems: ALLEN states that MARIANO, their family and holiness friends are her biggest supports at this time. Depression/Shaken Baby/Safe Sleeping: Dorian educated parents on signs and symptoms of baby blues and mood and anxiety disorders to be mindful of during this period. Parents express understanding. MARIANO states that if MOB were to struggle with her mental health during this period that he would recognize that and would know how to help and support her. Dorian educated parents on shaken baby prevention and ABCs of safe sleep. Parents express understanding. ASSESSMENT:? MOB and baby admitted following labor and delivery of . MOB with history of depression following a 23 week loss. Parents at bedside and initially baby was not present, and then he was brought back to the room following his circumcision. When arrived to room, MOB became anxious, stating that she needed to feed baby right away if he was awake as that is what recommended, and asked if someone could call for to present to room during her feed. FOB assisted MOB with the feed. Although parents reported that baby was feeding well and there were not any concerns, baby did not want to seem to eat, and MOB became anxious. Sw provided support and encouraged parents to rest assured that would come to assist them. MOB engaged in completion of assessment prior to returning from circumcision, and then her attention shifted to focus only on feeding baby. Parents have natural supports in place and have all necessary baby items. MOB also connected to a mental health support person that she will follow with throughout this period. PLAN:?? No other services requested or indicated. MOB and baby to be discharged when medically ready. Parents were provided literature regarding: signs and symptoms of baby blues and mood and anxiety disorders, Help Me Grow, shaken baby prevention, ABCs of safe sleep and a list of county resources that are available for them should any needs present themselves. Bob Ham, MANAGER REGULATORY, PYROMETER OPERATOR
== END 2024-04-28 17:14 | disposition home or self-care (01) | DRG 807 ==
LOC: WPOUT 02:04 → WP 02:04
PROVIDERS: Admitting Provider Obstetrics & Gynecology; PCP Family Medicine; Referring Provider Obstetrics & Gynecology; Visit Provider Obstetrics & Gynecology
DX: O42.02 Full-term premature rupture of membranes, onset of labor within 24 hours of rupture (principal); Z37.0 Single live birth; O26.893 Other specified pregnancy related conditions, third trimester; O70.1 Second degree perineal laceration during delivery; Z3A.39 39 weeks gestation of pregnancy; Z67.91 Unspecified blood type, Rh negative; Z88.0 Allergy status to penicillin; Z87.51 Personal history of pre-term labor
CPT/HCPCS: 59025; 59050; 84112; 85025; 85461; 86850; 86900; 86901; 90384; 99221; A4216; G0378; J2790; J2791